=== PATIENT | female | born 1960 | race African-American/Black ===

== ENCOUNTER 2020-06-28 11:45 | Emergency (ER) | payer OTHER ==
[~2020-06-28] VITALS: Ht 157.5 cm; Wt 64.4 kg
[~2020-06-28 11:45] MED LIST: CELEBREX 200 M200 M1 PO; CIPROFLOXACIN500 M1 PO; CRESTOR40 MG PO; FLEXERIL PO; GLUCOPHAGE850 MG PO; HTN MED; IRON325 PO; JANUVIA50 MG; LIPITOR; LIPITOR10 MG; LISINOPRIL20 MG PO; MICRONASE5 MG PO; NORCO 5-325 TA1 EACH PO; PRINIVIL20 MG PO; PROTONIX40 M1 PO; REGLAN 10 MG TA10 MG PO; ZANTAC 150MG T150 M1 PO
[2020-06-28 12:04] LABS: URINE BLOOD NEGATIVE (Negative); URINE CLARITY CLEAR; URINE COLOR YELLOW; URINE GLUCOSE-RANDOM* 1+ (Negative); URINE KETONES TRACE (Negative); URINE LEUKOCYTES-REFLEX NEGATIVE (Negative); URINE NITRITE-REFLEX NEGATIVE (Negative); URINE PROTEIN (DIPSTICK) 1+ (Negative); URINE SPECIFIC GRAVITY >= 1.030 (1.005-1.035)
[2020-06-28 12:05] LABS: ICTOTEST (BILI CONFIRMATORY) Negative (Negative); URINE BILIRUBIN NEGATIVE (Negative)
[2020-06-28 12:16] LABS: BACTERIA-REFLEX 1-9 Few /HPF (None Seen); CRYSTALS None Seen /LPF (None Seen); HYALINE CASTS 0-3 Few /LPF (None Seen); SQUAMOUS 0-3 Few /LPF (0-3); URINE RBC None Seen /HPF (0-2); URINE WBC-REFLEX 0-5 Rare /HPF (0-5)
[2020-06-28 12:49] LABS: ABSOLUTE NEUTROPHILS 6.8 thou/uL (1.4-8.2); BASOPHILS 0.7 % (0.0-2.0); EOSINOPHILS 0.5 % (0.0-3.0); HEMATOCRIT 44.3 % (37.0-47.0); HEMOGLOBIN 15.5 gm/dL (12.0-15.0); LYMPHOCYTES 19.3 % (24.0-44.0); MCH 31.5 pg (26.0-34.0); MCHC 34.9 g/dL (28.0-37.0); MCV 90.2 fL (80.0-100.0); MONOCYTES 7.8 % (1.0-8.0); PLATELET COUNT 470 thou/uL (150-400); POLYS 71.7 % (36.0-66.0); RBC 4.91 mil/uL (4.20-5.00); RDW 14.2 % (10.5-14.5); WBC 9.4 thou/uL (4.0-11.0)
[2020-06-28 13:10] LABS: ALBUMIN 4.2 g/dL (3.4-5.0); CALCIUM 10.1 mg/dL (8.5-10.1); TOTAL BILIRUBIN 0.3 mg/dL (0.2-1.0); TOTAL PROTEIN 8.6 g/dL (6.4-8.2)
[2020-06-28 13:13] LABS: POTASSIUM 2.9 mmol/L (3.5-5.1)
[2020-06-28 14:33] VITALS: BP 154/84
[2020-06-28] MEDS ORDERED: FLEET ENEMA EX230 ML RECTAL ×2 (15:31→15:48)
[2020-06-28] MEDS ORDERED: MIRALAX119 GM PO (15:31)
[2020-06-28] MEDS ORDERED: POTASSIUM20 PO ×2 (15:31→15:48)
[2020-06-28] MEDS ORDERED: SENNA PLUS TAB1 EACH PO (15:49)
--- NOTE | 2020-06-29 06:59 | EKG ---
[place] [address] [facility] [place] [address] ELECTROCARDIOGRAM REPORT Name: JULIETA VERA Room #: DEP Nakul#: [id number] Admission: 06/28/20 Attend Phys: Discharge: 06/28/20 Date of : 64 Report #: [id number] [facility] ED Test Date: 2020-06-28 Test Time: 14:31:22 Pat Name: JULIETA VERA Department: Room: Gender: F [employer]lee[employer]ter [employer]: BRENNON : 1960 Requested By: Rigo Sapp Order Number: [id number] MD: Leandro Ritchie Measurements Intervals [place] Rate: 77 P: 44 OK: 145 QRS: -5 QRSD: 87 T: 5 QT: 406 QTc: 460 Interpretive Statements Sinus rhythm Left ventricular hypertrophy Compared to ECG 10/18/2009 18:02:58 Left ventricular hypertrophy now present Electronically Signed On 06-29-2020 6:59:31 BRADDER by Leandro Ritchie [email or web address] <ELECTRONICALLY SIGNED> By: Leandro Ritchie MD, [facility] 06/29/20 0659 1431 1431 Leandro Ritchie MD, FACC /EPI
== END 2020-06-28 16:05 | disposition home or self-care (01) ==
LOC: ER 11:45
PROVIDERS: Physician Assistant
DX: K59.00 Constipation, unspecified (principal); E87.6 Hypokalemia; I10 Essential (primary) hypertension; E11.9 Type 2 diabetes mellitus without complications; E78.5 Hyperlipidemia, unspecified; Z79.899 Other long term (current) drug therapy